=== PATIENT | female | born 1980 | race African-American/Black ===

== ENCOUNTER 2018-12-13 01:49 | Emergency (ER) | payer MEDICAID, MEDICARE ==
[~2018-12-13] VITALS: Ht 165.1 cm; Wt 57.0 kg
[2018-12-13] MEDS ORDERED: KETOROLAC 60MG/2ML VIAL IM STA (04:18)
[2018-12-13 08:07] VITALS: BP 129/90
== END 2018-12-13 08:10 | disposition home or self-care (01) ==
LOC: ER 01:49
DX: S83.8X2A Sprain of other specified parts of left knee, initial encounter (principal); S83.092A Other subluxation of left patella, initial encounter; X58.XXXA Exposure to other specified factors, initial encounter; Y93.89 Activity, other specified; Y92.89 Other specified places as the place of occurrence of the external cause
CPT/HCPCS: 73562; 96372; 99283; J1885

== ENCOUNTER 2019-07-01 21:57 | Emergency (ER) | payer MEDICARE ==
[~2019-07-01] VITALS: Ht 165.1 cm; Wt 54.0 kg
[2019-07-01 22:49] LABS: CLARITY URINE CLEAR (CLEAR); COLOR URINE YELLOW (YELLOW); KETONES URINE NEGATIVE (NEGATIVE); LEUKOCYTE ESTERASE URINE TRACE (NEGATIVE); NITRITE URINE NEGATIVE (NEGATIVE); OCCULT BLOOD URINE 2+ (NEGATIVE); PROTEIN URINE NEGATIVE (NEGATIVE); SPECIFIC GRAVITY URINE 1.006 (1.005-1.030); UROBILINOGEN URINE 0.2 E.U./dL (0.2-1.0)
[2019-07-02 01:09] LABS: BASOPHILS % 0.8 % (0.0-2.0); EOSINOPHILS % 0.5 % (0.0-5.0); HEMATOCRIT. 32.5 % (36.0-48.0); HEMOGLOBIN. 11.1 g/dL (12.0-16.0); LYMPHOCYTES % 27.7 % (20.0-50.0); MEAN CORPUSCULAR HEMOGLOBIN 33.4 pg (28.0-32.0); MEAN CORPUSCULAR VOLUME 97.7 fL (81.0-99.0); MEAN PLATELET VOLUME 8.5 fl (7.4-10.4); MONOCYTES % 7.7 % (2.0-8.0); NEUTROPHILS % 63.3 % (40.0-76.0); PLATELET 217 x1000/uL (130-400); RED BLOOD CELL COUNT 3.32 mill/uL (4.2-5.4); RED CELL DISTRIBUTION WIDTH 12.4 % (11.6-14.6)
[2019-07-02 01:28] LABS: CHLORIDE 109 mEq/L (98-107)
[2019-07-02 01:50] LABS: B-HCG QUANTITATIVE 1265 mIU/mL (<3)
[2019-07-02] MEDS ORDERED: METHOTREXATE SODIUM/PF 50 MG/2 ML VIAL IM SCH (05:00)
[2019-07-02 06:02] VITALS: BP 114/83
== END 2019-07-02 06:03 | disposition home or self-care (01) ==
LOC: ER 21:57
DX: O00.90 Unspecified ectopic pregnancy without intrauterine pregnancy (principal); O99.321 Drug use complicating pregnancy, first trimester; Z3A.00 Weeks of gestation of pregnancy not specified; Z88.0 Allergy status to penicillin
CPT/HCPCS: 36415; 76830; 76856; 80053; 81003; 81025; 84702; 85025; 86850; 86900; 86901; 96372; 99291; J9260

== ENCOUNTER 2019-07-21 07:09 | Emergency (ER) | payer MEDICARE ==
[2019-07-21] MEDS ORDERED: iron (10:27)
[2019-07-21] MEDS ORDERED: prenatal (10:27)
== END 2019-07-21 08:31 | disposition left against medical advice (07) ==
LOC: ER 07:09
DX: Z53.21 Procedure and treatment not carried out due to patient leaving prior to being seen by health care provider (principal)

== ENCOUNTER 2019-07-21 09:38 | Emergency (ER) | payer MEDICARE ==
[~2019-07-21] VITALS: Ht 165.1 cm; Wt 55.0 kg
[2019-07-21 10:27] VITALS: BP 137/93
[2019-07-21] MEDS ORDERED: prenatal (10:27)
[2019-07-21] MEDS ORDERED: iron (10:27)
== END 2019-07-21 11:26 | disposition home or self-care (01) ==
LOC: ER 09:38
DX: J06.9 Acute upper respiratory infection, unspecified (principal); F12.10 Cannabis abuse, uncomplicated; Z98.890 Other specified postprocedural states; Z88.0 Allergy status to penicillin
CPT/HCPCS: 99281

== ENCOUNTER 2020-01-26 21:59 | Emergency (ER) | payer MEDICAID, MEDICARE ==
[~2020-01-26] VITALS: Ht 165.1 cm; Wt 66.0 kg
[~2020-01-26 21:59] MED LIST: iron; prenatal
[2020-01-26 22:22] VITALS: BP 150/100
[2020-01-27 00:32] LABS: EOSINOPHILS % 0.2 % (0.0-5.0); HEMATOCRIT. 38.1 % (36.0-48.0); HEMOGLOBIN. 12.8 g/dL (12.0-16.0); LYMPHOCYTES % 34.1 % (20.0-50.0); MEAN CORPUSCULAR HEMOGLOBIN 32.4 pg (28.0-32.0); MEAN CORPUSCULAR VOLUME 96.6 fL (81.0-99.0); MEAN PLATELET VOLUME 8.3 fl (7.4-10.4); MONOCYTES % 8.1 % (2.0-8.0); NEUTROPHILS % 56.6 % (40.0-76.0); PLATELET 256 x1000/uL (130-400); RED BLOOD CELL COUNT 3.95 mill/uL (4.2-5.4); RED CELL DISTRIBUTION WIDTH 12.8 % (11.6-14.6)
[2020-01-27 00:36] LABS: CHLORIDE 105 mEq/L (98-107)
[2020-01-27] MEDS ORDERED: POTASSIUM CHLORIDE 20MEQ TABLET SR PO SCH (00:45)
[2020-01-27 00:50] LABS: B-HCG QUANTITATIVE 453 mIU/mL (<3)
== END 2020-01-27 02:21 | disposition left against medical advice (07) ==
LOC: ER 21:59
DX: O00.201 Right ovarian pregnancy without intrauterine pregnancy (principal); Z3A.01 Less than 8 weeks gestation of pregnancy; Z88.0 Allergy status to penicillin
CPT/HCPCS: 36415; 76801; 80053; 81025; 84702; 85025; 86850; 86900; 93005; 99285

== ENCOUNTER 2024-10-16 09:26 | Emergency (ER) | payer MEDICARE, OTHER ==
[~2024-10-16] VITALS: Ht 165.1 cm; Wt 58.0 kg
[2024-10-16 09:29] VITALS: TEMP 36.9; O2SAT 99
[2024-10-16] MEDS: KETOROLAC 30MG/ML VIAL IM ONE (12:31)
[2024-10-16 14:18] VITALS: BP 157/96; PULSE 81; RESP 18; O2SAT 100
== END 2024-10-16 14:20 | disposition home or self-care (01) ==
LOC: ER 09:26
DX: M77.32 Calcaneal spur, left foot (principal); M77.31 Calcaneal spur, right foot; F12.90 Cannabis use, unspecified, uncomplicated; Z79.899 Other long term (current) drug therapy; Z88.0 Allergy status to penicillin; W17.89XA Other fall from one level to another, initial encounter; Y93.39 Activity, other involving climbing, rappelling and jumping off; Y92.89 Other specified places as the place of occurrence of the external cause; Y99.8 Other external cause status
CPT/HCPCS: 81025; 72100; 73650; 96372; 99284; J1885; Z7610